=== PATIENT | female | born 1940 | race Caucasian/White ===

== ENCOUNTER 2017-01-22 09:41 | Emergency (ER) | payer MEDICARE, MEDICAID ==
[~2017-01-22] VITALS: Ht 162.6 cm; Wt 60.3 kg
[~2017-01-22 09:41] MED LIST: ASPIRIN81 MG PO; CENTRUM SILVER1 EAC1 PO; COREG3.125 MG PO; DEMADEX10 MG PO; DENTAGEL56 GM PO; FLONASE16 GM NASBOTH; FOLIC ACID1 MG PO; KLOR-CON M1010 MEQ PO; MAALOX ADVANCE1 EACH PO; MILK OF MAGNESI30 ML PO; TYLENOL500 MG PO; ZOLOFT100 MG PO; ZYRTEC10 MG PO
== END 2017-01-22 15:00 | disposition short-term general hospital (02) ==
LOC: ER 09:41
DX: I95.9 Hypotension, unspecified (principal); R17 Unspecified jaundice; G20 Parkinson's disease; I25.10 Atherosclerotic heart disease of native coronary artery without angina pectoris; I11.0 Hypertensive heart disease with heart failure; I50.9 Heart failure, unspecified; F02.80 Dementia in other diseases classified elsewhere, unspecified severity, without behavioral disturbance, psychotic disturbance, mood disturbance, and anxiety; F32.9 Major depressive disorder, single episode, unspecified; Z79.82 Long term (current) use of aspirin; Z79.899 Other long term (current) drug therapy; Z95.0 Presence of cardiac pacemaker; Z88.8 Allergy status to other drugs, medicaments and biological substances
CPT/HCPCS: J1650; J2543